=== PATIENT | female | born 1985 | race Caucasian/White ===

== ENCOUNTER 2016-07-19 16:27 | Emergency (ER) | payer OTHER ==
[2016-07-19 17:28] LABS: ABSOLUTE NEUTROPHIL COUNT 4.4 K/mm3 (1.8-7.7); BASO % 0.5 % (0.2-1.0); EOS # 0.1 (0.0-0.5); HEMATOCRIT 34.4 % (37.0-47.0); IMM NEUT% 0.2 % (0-1); LYMPH # 3.1 (1.0-4.8); LYMPH % 37.9 % (15-45); MEAN CELL VOLUME 95.6 fl (81.0-99.0); MEAN CORPUSCULAR HEMOGLOBIN 30.6 pg (27.0-31.0); MEAN PLATELET VOLUME 10.6 fl (7.4-10.4); MONO # 0.6 (0.0-0.8); MONO % 7.4 % (4-12); PLATELET COUNT 266 K/mm3 (130-400); RED CELL DISTRIBUTION WIDTH 13.7 % (11.5-14.5)
[2016-07-19 18:03] LABS: SPECIFIC GRAVITY 1.015 (1.001-1.030); URINE BILIRUBIN NEGATIVE (NEGATIVE); URINE BLOOD 1+ (NEGATIVE); URINE GLUCOSE (UA) NEGATIVE (NEGATIVE); URINE LEUKOCYTE ESTERASE NEGATIVE (NEGATIVE); URINE NITRITE NEGATIVE (NEGATIVE); URINE PROTEIN NEGATIVE (NEGATIVE); URINE UROBILINOGEN NORMAL (0-1 mg/dl)
[2016-07-19 18:05] LABS: URINE APPEARANCE CLEAR; URINE COLOR LIGHT YELLOW
[2016-07-19 18:29] LABS: URINE BACTERIA NONE SEEN; URINE WBC 0-2 /hpf
== END 2016-07-19 18:22 | disposition home or self-care (01) ==
LOC: ED 16:27
DX: R33.9 Retention of urine, unspecified (principal); E11.9 Type 2 diabetes mellitus without complications; Z79.84 Long term (current) use of oral hypoglycemic drugs; Z87.442 Personal history of urinary calculi

== ENCOUNTER 2016-07-29 14:08 | Emergency (ER) | payer OTHER ==
[2016-07-29 14:56] LABS: URINE BILIRUBIN NEGATIVE (NEGATIVE); URINE BLOOD 2+ (NEGATIVE); URINE GLUCOSE (UA) NEGATIVE (NEGATIVE); URINE LEUKOCYTE ESTERASE 1+ (NEGATIVE); URINE NITRITE POSITIVE (NEGATIVE); URINE PROTEIN NEGATIVE (NEGATIVE); URINE UROBILINOGEN NORMAL (0-1 mg/dl)
[2016-07-29 14:58] LABS: URINE APPEARANCE HAZY; URINE COLOR YELLOW
[2016-07-29 15:17] LABS: URINE EPITHELIAL CELLS OCCASIONAL /hpf; URINE RBC 0-2 /hpf
[2016-07-29 15:18] LABS: URINE BACTERIA 3+ BACILLI
== END 2016-07-29 15:47 | disposition home or self-care (01) ==
LOC: ED 14:08
DX: R33.9 Retention of urine, unspecified (principal); J06.9 Acute upper respiratory infection, unspecified; E11.9 Type 2 diabetes mellitus without complications; Z79.84 Long term (current) use of oral hypoglycemic drugs